=== PATIENT | male | born 1960 | race Caucasian/White ===

== ENCOUNTER 2018-01-28 07:31 | Day surgery (SDC) | payer BC ==
[~2018-01-28 07:31] MED LIST: Lactated Ringers 1,000 ML IV SCH; Sodium Chloride 0.9% 10 ML Syringe FLUSH PRN
[2018-01-28] MEDS ORDERED: Propofol 200 MG/20 ML SDV IV ONE (08:45)
--- NOTE | 2018-01-28 09:15 | PCM.OPNOTE ---
- General Post-Op/Procedure Note Date of Surgery/Procedure: 01/28/18 Operative Procedure(s): c scope with bx Findings: descending colon polyp sigmoid polyp x2 Pre Op Diagnosis: screening Post-Op Diagnosis: descending colon polyp. sigmoid polyp x2 Anesthesia Technique: MAC Primary Surgeon: Parveen Felipe Anesthesia Provider: Robb Meyers Pathology: descending colon polyp sigmoid polyp x2 Complications: None Condition: Good Free Text/Narrative:: see dictation
--- NOTE | 2018-01-28 10:20 | OR ---
DATE OF OPERATION: 01/28/2018 SURGEON: Parveen Felipe MD PROCEDURES PERFORMED: Colonoscopy with cold forceps and hot loop snare biopsy. PREOPERATIVE DIAGNOSIS: Need for screening C-scope. POSTOPERATIVE DIAGNOSIS: Descending colon polyp and sigmoid colon polyp x2. INDICATIONS FOR PROCEDURE: This is a 57-year-old white male who presents for his initial screening colonoscopy. He was offered and accepted same. DESCRIPTION OF OPERATION: After an excellent IV sedation was administered, digital rectal exam was performed and no marked abnormalities were noted. The flexible colonoscope was inserted and advanced without difficulty to the cecum. The prep was excellent. The following findings were noted. Ascending colon, unremarkable. Transverse colon, unremarkable. Descending colon, a small polypoid lesion, biopsied with cold biopsy forceps and sent for permanent. Sigmoid, distal sigmoid, 2 polyps, one pedunculated, these were biopsied with a combination of cold forceps and hot loop snare biopsy. Rectum was unremarkable. The colon was then deflated. The scope was then removed. The patient tolerated the procedure well. /[id number] /GEORGINA
== END 2018-01-28 10:09 | disposition home or self-care (01) ==
LOC: FB.SDS 07:31
PROVIDERS: ATTEND Surgery
DX: Z12.11 Encounter for screening for malignant neoplasm of colon (principal); D12.5 Benign neoplasm of sigmoid colon; K63.5 Polyp of colon; J45.20 Mild intermittent asthma, uncomplicated; Z87.891 Personal history of nicotine dependence; Z79.51 Long term (current) use of inhaled steroids
CPT/HCPCS: 45380; 45385; 88305; J2704; J7120